=== PATIENT | male | born 1945 | race Caucasian/White ===

== ENCOUNTER 2021-04-25 13:39 | Outpatient (CLI) | payer MEDICARE, SELFPAY ==
--- NOTE | ~2021-04-25 | MR_ITS ---
EXAMINATION: MR brain/brain stem wo/w con EXAM DATE: 04/25/2021 15:07 INDICATION: new onset expressive aphasia for 2-3 weeks. TECHNIQUE: Magnetic resonance imaging (MRI) of the brain/brain stem obtained without contrast. Sagit tonny T1, axial diffusion, gradient echo (T2*), T1, T2, FLAIR sequences obtained. Patient was then inj ected with 20 cc intravenous Multihance contrast. Axial and coronal postcontrast T1 weighted sequence s obtained. There is no prior study for comparison. FINDINGS: There is region of increased T1 and T2 signal involving left frontal lobe posterior turcios an d white matter, measuring up to about 3 cm. This region also demonstrates enhancement, small amount o f cortical strip susceptibility and possible mild restricted diffusion. Appearance is most consistent with a subacute infarction and laminar necrosis, although enhancing primary brain cancer can have si milar appearance; therefore a follow-up examination is recommended in one month to confirm expected e volution. There is a chronic left parietal lobe infarction which is similar in size. No other areas of abnormal enhancement. Punctate old right cerebellar infarction. No obstructive hydr ocephalus or extra-axial collections. Rising cataract surgery. Mild to moderate mucoperiosteal thicke naun. Left mastoid effusion. Flow voids are seen in the cerebral arteries on the T2 weighted sequence s consistent with their expected patency. IMPRESSION: 1. Left posterior frontal lobe signal abnormality most consistent with subacute infarction, laminar necrosis; recommend one-month follow-up MRI without and with contrast to confirm expected evolution a nd exclude glioblastoma. 2. Old left parietal lobe infarction. Reviewed, dictated and finalized at location B. OGRAPHIC PROOFER APPRENTICE IMPRESSION: 1. Left posterior frontal lobe signal abnormality most consistent with subacut e infarction, laminar necrosis; recommend one-month follow-up MRI without and w ith contrast to confirm expected evolution and exclude glioblastoma. 2. Old left parietal lobe infarction.
--- NOTE | ~2021-04-25 | US_ITS ---
EXAMINATION: US carotid duplex BI DATE: 04/25/2021 15:33 INDICATION: Aphasia TECHNIQUE: Grayscale, color Doppler, and pulsed Doppler images of the cervical carotid arteries were obtained. The degree of vessel stenosis is placed in one of the following categories: normal, <50%, 5 0-69%, >=70% but less than near-occlusion, near-occlusion, or total occlusion. Note that percent sten osis relative to normal distal artery lumen diameter is indirectly measured from velocity measurement s as described by Jamal, et al. Radiology 2003; 229:340-346. COMPARISON: None. FINDINGS: RIGHT: The right common carotid artery (CCA) peak systolic velocity (PSV) is 58 cm/s. The right internal car otid artery (ICA) PSV is 61 cm/s. The right ICA end-diastolic velocity (EDV) is 14 cm/s. The right IC A/CCA PSV ratio is 1.1. Grayscale and color Doppler images yield an estimate of <50% diameter reducti on from plaque in the ICA. The external carotid artery (ECA) PSV is 103 cm/s. There is antegrade flow in the right vertebral artery. LEFT: The left CCA PSV is 88 cm/s. The left ICA PSV is 59 cm/s. The left ICA EDV is 10 cm/s. The left ICA/C CA PSV ratio is 0.7. Grayscale and color Doppler images yield an estimate of <50% diameter reduction from plaque in the ICA. The ECA PSV is 100 cm/s. There is antegrade flow in the left vertebral artery . IMPRESSION: 1. <50% stenosis in the right internal carotid artery. 2. <50% stenosis in the left internal carotid artery. Reviewed, dictated and finalized at location A. ORK SECURITY ADMINISTRATOR
[2021-04-25 14:32] LABS: Estimated Glomerular Filt Rate > 60
== END 2021-04-25 13:40 | disposition home or self-care (01) ==
PROVIDERS: PCP Internal Medicine; Visit Provider Nurse Practitioner
DX: R74.01 Elevation of levels of liver transaminase levels (principal); Z86.73 Personal history of transient ischemic attack (TIA), and cerebral infarction without residual deficits; I65.23 Occlusion and stenosis of bilateral carotid arteries
CPT/HCPCS: 70553; 93880; A9577

== ENCOUNTER 2021-07-29 13:40 | Outpatient (CLI) | payer MEDICARE, SELFPAY ==
--- NOTE | 2021-07-29 13:45 | ECHO_ITS ---
Patient Info Name: Mak Lebron Age: 75 years : 1945 Gender: Male Ht: 69 in Wt: 218 lbs BSA: 2.23 m2 HR: 92 bpm BP: 157 / 85 mmHg Technical Quality: Fair Exam Date: 07/29/2021 2:12 PM Exam Location: [facility] Patient Status: Outpatient Admit Date: 07/29/2021 Staff Ordering Physician: Arden Bustamante MD Linux Consultant: María Humphrey RDCS Attending Provider: Arden Bustamante MD Exam Type: CA echo doppler w bubble study Study Info Indications I63.9 - CEREBRAL INFARCTION, UNSPECIFIED Complete two-dimensional, color flow and Doppler transthoracic echocardiogram is performed with agitated saline. Contrast/Agitated Saline Contrast/Ag. Saline: Agitated Saline Amount: 20.00 ml Administered By: Tali Jensen RDCS New IV Access: Inner Forearm and Left Site Condition: No extravasation and IV removed Summary 1. Left ventricular chamber dimension is normal. 2. Left ventricular systolic function is normal, estimated at 60-65%. 3. There is mildly increased left ventricular wall thickness. 4. The left ventricular diastolic function is grade I diastolic dysfunction. 5. E/e' 14 is mildly elevated. 6. There is trace mitral valve regurgitation. 7. There is trace tricuspid valve regurgitation. 8. No pulmonary hypertension, estimated pulmonary arterial systolic pressure is 27 mmHg. Left Ventricle E/e' 14 is mildly elevated. Left ventricular chamber dimension is normal. Left ventricular systolic function is normal, estimated at 60-65%. There is mildly increased left ventricular wall thickness. The left ventricular diastolic function is grade I diastolic dysfunction. Right Ventricle Moderator band noted is a normal variant. Right ventricular chamber dimension is normal. Right ventricular systolic function is normal. Left Atria Left atrial chamber dimension is normal. Right Atria Right atrial chamber dimension is normal. Atrial Septum Agitated saline injection with and without valsalva maneuver opacified right side cardiac chambers without obvious shunt to left side cardiac chambers. Intact interatrial septum visualized by 2D and agitated saline imaging. Aortic Valve The aortic valve is trileaflet. There is no aortic valve stenosis. There is no aortic valve regurgitation. Pulmonic Valve There is no pulmonic regurgitation. Mitral Valve There is no mitral valve stenosis. There is trace mitral valve regurgitation. Tricuspid Valve There is trace tricuspid valve regurgitation. No pulmonary hypertension, estimated pulmonary arterial systolic pressure is 27 mmHg. Pericardium/Pleural There is no pericardial effusion. Inferior Vena Cava Normal inferior vena cava with >50% collapse upon inspiration consistent with normal right atrial pressure, 5 mmHg. Aorta The aortic root size at the sinus of Valsalva is normal. Left Ventricular Outflow Tract Name Value Normal LVOT 2D LVOT Diameter 2.0 cm LVOT Doppler LVOT Peak Gradient 5 mmHg LVOT Mean Gradient 3 mmHg LVOT VTI
== END 2021-07-29 13:41 | disposition home or self-care (01) ==
PROVIDERS: PCP Internal Medicine; Visit Provider Psychiatry & Neurology Neurology
DX: I63.9 Cerebral infarction, unspecified (principal)
CPT/HCPCS: 93306; 96375

== ENCOUNTER 2022-01-27 00:23 | Day surgery (SDC) | payer MEDICARE, SELFPAY ==
[2022-01-14 15:00] VITALS: BMI 34.5
[2022-01-27 07:45] VITALS: BP 146/97; PULSE 103; RESP 103; TEMP 36.6; O2SAT 95; BMI 34.4
--- NOTE | 2022-01-27 07:56 | PM.HPGS ---
History of Present Illness History of Present Illness Consent: Risks, benefits, and alternatives have been discussed and questions answered. Patient agrees to proceed with procedure. Chief complaint: positive cologuard, Howard's Esophagus Narrative: Mak Lebron is a 76 year old male Presents for screening colonoscopy. Patient recently found to have positive Cologuard test. Patient has a family history of colon cancer in his brother. Patient is reported to have had an adenomatous colon polyp removed in 2011. Patient has been followed by Dr. Fisher with an underlying history of Howard's esophagus. Patient denies heartburn. Currently has no dysphagia or difficulty swallowing. He is reported to have had a CVA in April of 2021 this left him with some dysarthria. Previous PPI therapy apparently has been discontinued for concerns over interaction with new drug medication. Patient denies any dysphagia. Patient presents today for both colonoscopy and EGD. Review of Systems Review of Systems: Review of systems is noncontributory. [facility] Past Medical History Medical History ARIK (obstructive sleep apnea) Family History Family History Mother Hypertension Family history of malignant neoplasm of breast in first degree relative Sibling Family history of arthritis Carcinoma of colon Father Family history of diabetes mellitus in first degree relative Family history of congestive heart failure Social History Social History Smoking status: Never smoker Second hand tobacco smoke exposure: No Alcohol intake: never Substance use: never Substance use type: does not use Living arrangements: with family Spiritual care concerns: No Meds Home Medications and Allergies Home Medications Medication Instructions Recorded Confirmed Type inulin 2 gram chewable tablet See Rx Instructions PO .COMPLEX 02/18/19 01/27/22 History (Fiber Gummies) amlodipine 5 mg tablet 5 mg PO DAILY #90 tabs 09/11/21 01/27/22 Rx atorvastatin 10 mg tablet 10 mg PO DAILY #90 tabs 09/11/21 01/27/22 Rx glimepiride 2 mg tablet 2 mg PO DAILY #180 tabs 09/11/21 01/27/22 Rx pioglitazone 15 mg-metformin 850 1 tablet PO DAILY #90 tabs 09/11/21 01/27/22 Rx mg tablet losartan 100 mg tablet 100 mg PO DAILY #90 tabs 12/15/21 01/27/22 Rx Allergies Allergy/AdvReac Type Severity Reaction Status Date / Time No Known Allergies Allergy Mild Verified 01/27/22 07:50 Exam Narrative: Physical exam reveals patient to be alert. Vital signs stable. HEENT exam reveals no icterus. Lungs are clear. Heart without murmur. Abdomen bowel sounds are present soft nontender with no organomegaly. Digital external rectal exam is normal. Assessment and Plan Assessment and plan (1) Positive colorectal cancer screening using Cologuard test: Code(s): R19.5 - Other fecal abnormalities Status: Acute Assessment and Plan: Patient presents today for colonoscopy because of positive Cologuard test. (2) History of colon polyps: Code(s): Z86.010 - Personal history of colonic polyps Status: Acute Assessment and Plan: Patient has prior history of colon polyps. Apparently adenomatous colon polyps removed in 2011. (3) Family hx of colon cancer: Code(s): Z80.0 - Family history of malignant neoplasm of digestive organs Status: Acute Assessment and Plan: Patient's brother has had colon cancer. Suggesting patient has a higher risk of colon polyps. Follow-up colonoscopy at 5 year intervals has been advised. (4) Expressive aphasia: Code(s): R47.01 - Aphasia Status: Acute Assessment and Plan: Patient with expressive aphasia after CVA in April of 2021. (5) CVA (cerebrovascular accident): Code(s):
[2022-01-27] MEDS: LACTATED RINGERS 1,000 ML 150 ML IV CONT (08:16)
--- NOTE | 2022-01-27 08:18 | P.PNAN_ITS ---
Anes - Initial Pre Proc Eval Procedure: Operation Date: 01/27/22 09:00 Proposed Procedures p Esophagogastroduodenoscopy & Colonoscopy - Jose Manuel Galeana MD Date/Time: 01/27/22 08:18 Surgeon: Jose Manuel Galeana MD Pre Op Diagnosis: positive cologuard, Howard's Esophagus Patient Data Age: 76 Gender: M Height: 1.73 m Weight: 102.8 kg Last Vital Signs Temp 36.6 C 01/27/22 07:45 Pulse 103 H 01/27/22 07:45 Resp 103 H 01/27/22 07:45 BP 146/97 H 01/27/22 07:45 Pulse Ox 95 01/27/22 07:45 O2 Del Method Room Air 01/27/22 07:45 Allergies Allergy/AdvReac Type Severity Reaction Status Date / Time No Known Allergies Allergy Mild Verified 01/27/22 07:50 Home Medications Medication Instructions Recorded Confirmed Type inulin 2 gram chewable tablet See Rx Instructions PO .COMPLEX 02/18/19 01/27/22 History (Fiber Gummies) amlodipine 5 mg tablet 5 mg PO DAILY #90 tabs 09/11/21 01/27/22 Rx atorvastatin 10 mg tablet 10 mg PO DAILY #90 tabs 09/11/21 01/27/22 Rx glimepiride 2 mg tablet 2 mg PO DAILY #180 tabs 09/11/21 01/27/22 Rx pioglitazone 15 mg-metformin 850 1 tablet PO DAILY #90 tabs 09/11/21 01/27/22 Rx mg tablet losartan 100 mg tablet 100 mg PO DAILY #90 tabs 12/15/21 01/27/22 Rx Patient hx anesthesia problems: none Family hx anesthesia problems: none Results Review: All pre-operative results and documents have been reviewed as part of the pre- operative evaluation. [facility] [place] Past Medical History Medical History ARIK (obstructive sleep apnea) Family History Family History Mother Hypertension Family history of malignant neoplasm of breast in first degree relative Sibling Family history of arthritis Carcinoma of colon Father Family history of diabetes mellitus in first degree relative Family history of congestive heart failure Social History Social History Smoking status: Never smoker Second hand tobacco smoke exposure: No Alcohol intake: never Substance use: never Substance use type: does not use Living arrangements: with family Spiritual care concerns: No Anes - Eval Final PreProcedure Day of Procedure 01/27/22 08:18 Patient weight: obese Heart: regular rate and rhythm Lungs: clear to auscultation Airway: Mallampati scale class II Neurological: alert and oriented Last oral intake: >/= 8 hours ASA classification: IV Emergent: no Anesthetic plan: proceed Anesthesia type and monitoring: general GIVS and standard monitoring Results Review: All pre-operative results and documents have been reviewed as part of the pre- operative evaluation. Informed Consent: The patient's anesthetic plan and its attendant risks and benefits were discussed with the patient/family/POA. Questions were solicited and answers provided to the satisfaction of the patient/family/POA.
[2022-01-27 08:27] LABS: Glucose Point of Care 129 mg/dl (65-105)
--- NOTE | 2022-01-27 09:13 | SUR.OPER ---
EGD ENDED 906, COLONOSCOPY STARTED 912
[2022-01-27 09:19] VITALS: BP 90/52; PULSE 77; RESP 16; O2SAT 99
[2022-01-27 09:29] VITALS: BP 118/82; PULSE 85; RESP 18; O2SAT 97
[2022-01-27 09:39] VITALS: BP 118/85; PULSE 74; RESP 23; O2SAT 98
== END 2022-01-27 09:42 | disposition home or self-care (01) ==
PROVIDERS: PCP Internal Medicine; Visit Provider Internal Medicine Gastroenterology
PROC: 0DJ08ZZ Inspection of Upper Intestinal Tract, Via Natural or Artificial Opening Endoscopic (ICD-10-PCS; CPT 43235; principal; 2022-01-27 09:00)
DX: R19.5 Other fecal abnormalities (principal); Z86.010 Personal history of colon polyps; Z80.0 Family history of malignant neoplasm of digestive organs; K21.00 Gastro-esophageal reflux disease with esophagitis, without bleeding; K22.10 Ulcer of esophagus without bleeding; G47.33 Obstructive sleep apnea (adult) (pediatric); I69.320 Aphasia following cerebral infarction; Z79.84 Long term (current) use of oral hypoglycemic drugs; E66.9 Obesity, unspecified; Z68.34 Body mass index [BMI] 34.0-34.9, adult
CPT/HCPCS: 45378; 43239; 82948; 88305; J2001; J2704; J7120

== ENCOUNTER 2023-04-02 04:13 | Day surgery (SDC) | payer MEDICARE, SELFPAY ==
[2023-03-23 13:42] VITALS: BMI 31.6
--- NOTE | 2023-03-31 10:04 | SUR.PREOP ---
Patient called regarding upcoming procedure. Message left on pt's voicemail regarding appointment times.
--- NOTE | 2023-04-02 10:28 | ECG_ITS ---
Measurements Intervals [place] Rate: 103 P: RI: 0 QRS: -21 QRSD: 108 T: 4 QT: 356 QTc: 468 Interpretive Statements ATRIAL FIBRILLATION WITH RAPID VENTRICULAR RESPONSE ABNORMAL RHYTHM ECG NO PREVIOUS ECG AVAILABLE FOR COMPARISON Electronically Signed On 04-02-2023 16:36:38 CREDIT RESOLUTION REPRESENTATIVE by Eun Smith M.D.
--- NOTE | 2023-04-02 10:31 | SUR.PREOP ---
Patient heart rate irregular upon auscultation and palpation. Patient connected to heart monitor and Dr. Jeter assessed. Received orders from Dr. Jeter for a STAT EKG.
[2023-04-02 10:54] VITALS: BP 155/82; PULSE 110; RESP 20; TEMP 36.4; O2SAT 97
--- NOTE | 2023-04-02 10:57 | SUR.PREOP ---
Patient's EKG showed Atrial Fibrillation with RVR. Dr. Jeter assessed and recommended the patient go to the ER. Patient agreeable. Report given by JOE Ambrosio. Patient transferred to the ER via stretcher. at bedside with patient.
== END 2023-04-02 11:01 | disposition other institution (70) ==
PROVIDERS: PCP Nurse Practitioner; Visit Provider Internal Medicine Gastroenterology
PROC: 0DJ08ZZ Inspection of Upper Intestinal Tract, Via Natural or Artificial Opening Endoscopic (ICD-10-PCS; CPT 43235; principal; 2023-04-02 11:30)
DX: I48.91 Unspecified atrial fibrillation (principal); Z53.09 Procedure and treatment not carried out because of other contraindication
CPT/HCPCS: 93005; 99212; G0463

== ENCOUNTER 2023-04-02 10:58 | Emergency (ER) | payer MEDICARE, SELFPAY ==
--- NOTE | ~2023-04-02 | XR_ITS ---
EXAMINATION: XR chest 1V portable DATE: 04/02/2023 11:28 INDICATION: Arrhythmia. TECHNIQUE: A single frontal view of the chest was obtained. COMPARISON: Chest 2 views 04/22/2009, chest CT 01/06/2010 FINDINGS: There is chronic marked elevation of right hemidiaphragm. There are interstitial opacities in the mid and lower lung zones. No pleural effusion or pneumothorax or cardiomegaly is noted. IMPRESSION: 1. Interstitial opacities in the mid and lower lung zones, consistent with mild pulmonary edema versu s chronic interstitial lung disease. 2. Chronic marked elevation of right hemidiaphragm. 3. Cardiomegaly. Reviewed, dictated and finalized at location A. R CREASER IMPRESSION: 1. Interstitial opacities in the mid and lower lung zones, consistent with mild pulmonary edema versus chronic interstitial lung disease. 2. Chronic marked elevation of right hemidiaphragm. 3. Cardiomegaly.
[2023-04-02 10:59] VITALS: BP 146/87; PULSE 122; RESP 21; O2SAT 93
--- NOTE | 2023-04-02 11:04 | ECG_ITS ---
Measurements Intervals [place] Rate: 103 P: OR: 0 QRS: 118 QRSD: 97 T: 5 QT: 368 QTc: 482 Interpretive Statements ATRIAL FIBRILLATION WITH RAPID VENTRICULAR RESPONSE LOW QRS VOLTAGE IN PRECORDIAL LEADS [QRS DEFLECTION < 1.0 mV IN CHEST LEADS] COMPARED TO ECG 04/02/2023 10:35:38 NO SIGNIFICANT CHANGES Electronically Signed On 04-02-2023 16:37:46 TUBE ROLLER by Eun Smith M.D.
--- NOTE | 2023-04-02 11:24 | ED.ARRPALP ---
HPI - Arrhythmia/Palpitations General Chief Complaint: Arrhythmia/Palpitations <Jessica Huang PA-C - Last Filed: 04/02/23 20:25> Stated Complaint: afib <Jessica Huang PA-C - Last Filed: 04/02/23 20:25> Time Seen by Provider: 04/02/23 11:06 <Jessica Huang PA-C - Last Filed: 04/02/23 20:25> History of Present Illness HPI narrative: 77-year-old male with a history of hypertension, hyperlipidemia, diabetes, CVA, hypothyroidism reports for evaluation for new onset atrial fibrillation with his at bedside. Patient was sent to the ED from the GI lab. He was scheduled for a routine EGD and colonoscopy today when he had a preop EKG performed which showed atrial fibrillation. The patient states he feels fine. He denies chest pain, palpitations, shortness of breath, syncope, lightheadedness, neck pain or back pain, abdominal pain, fever, cough or congestion. He denies history of atrial fibrillation. He is not anticoagulated but does take 81 mg of aspirin daily for prior CVA. Denies vision changes, focal numbness or weakness, melena, hematochezia, hematemesis. <ANN MARIE Nance Last Filed: 04/02/23 20:25> Related Data Home Medications: Home Medications Medication Instructions Recorded Confirmed inulin 2 gram chewable tablet See Rx Instructions PO .COMPLEX 02/18/19 03/23/23 (Fiber Gummies) <ANN MARIE Nance Last Filed: 04/02/23 20:25> Allergies/Adverse Reactions: Allergies Allergy/AdvReac Type Severity Reaction Status Date / Time No Known Allergies Allergy Mild Verified 04/02/23 10:33 <ANN MARIE Nance Last Filed: 04/02/23 20:25> Thyroid Dysfunction Results: TSH 1.45 mIU/L (0.40-4.50) 07/13/22 <ANN MARIE Nance Last Filed: 04/02/23 20:25> Most Recent Cardiac Tests: Chest X-Ray 04/02/23 Echocardiogram 07/29/21 <Jessica Huang PA-C - Last Filed: 04/02/23 20:25> Labs Most Recent Diabetes Results: Hemoglobin A1c 6.4 % of total Hgb (<5.7) H 01/20/23 Glucose 87 mg/dL (65-110) 04/02/23 Microalb/Creat Ratio 15 mcg/mg creat (<30) 06/26/20 Cholesterol 109 mg/dL (<200) 01/20/23 Triglycerides 132 mg/dL (<150) 01/20/23 Creatinine 1.00 mg/dL (0.7-1.3) 04/02/23 Blood Urea Nitrogen 15 mg/dL (9-20) 04/02/23 Sodium 141 mmol/L (137-145) 04/02/23 Potassium 3.9 mmol/L (3.4-5.0) 04/02/23 Chloride 103 mmol/L (98-107) 04/02/23 Carbon Dioxide 28 mmol/L (22-30) 04/02/23 Calcium 9.3 mg/dL (8.4-10.2) 04/02/23 AST 24 U/L (17-59) 04/02/23 ALT 12 U/L (6-50) 04/02/23 Total Protein 8.0 g/dL (6.3-8.2) 04/02/23 Albumin 4.1 g/dL (3.5-5.1) 04/02/23 <Jessica Huang PA-C - Last Filed: 04/02/23 20:25> Management Diabetes Management: Date of last retinal or dilated eye exam Date of last comprehensive foot exam Visual inspection previously performed No 02/28/19 Peripheral pulses previously performed No 02/28/19 Sensory foot exam previously performed No 02/28/19 Date of last diabetes education Date of last dental visit <Jessica Huang PA-C - Last Filed: 04/02/23 20:25> Review of Systems Review of Systems: CONSTITUTIONAL: Denies fever, chills, or sweats. EYES: Denies visual changes, redness, or discharge. ENT: Denies rhinorrhea, congestion, sore throat, or otalgia. CARDIOVASCULAR: Denies chest pain, palpitations, or edema. RESPIRATORY: Denies cough or dyspnea. GASTROINTESTINAL: Denies abdominal pain, nausea, vomiting, or diarrhea. GENITOURINARY: Denies dysuria or hematuria. SKIN: Denies rash or itching. MUSCULOSKELETAL: Denies back pain, joint pain, or myalgia. NEUROLOGIC: Denies headache, numbness, or weakness. PSYCHIATRIC: Denies anxiety or depression. <Jessica Huang PA-C - Last Filed: 04/02/23 20:25> [facility] Past Medical History
[2023-04-02 11:27] LABS: Basophils Percent Auto 0.2 % (0.2-1.2); Eosinophils Percent Auto 0.4 % (0-4.4); Hematocrit 48.3 % (42.0-52.0); Hemoglobin 15.5 g/dL (14.0-18.0); Immature Granulocyte Absolute 0.04 K/mm3 (0.00-0.031); Immature Granulocyte Percent A 0.4 % (0-0.5); Lymphocytes Absolute Auto 1.61 K/mm3 (0.9-3.2); Mean Corpuscular HGB Conc 32.1 g/dl (32-36); Mean Corpuscular Hemoglobin 28.1 pg (26-34); Mean Corpuscular Volume 87.7 fl (80-100); Mean Platelet Volume 9.9 fl (7.4-10.4); Monocytes Absolute Auto 0.9 K/mm3 (0.1-0.6); Monocytes Percent Auto 9.8 % (2.6-8.5); Neutrophils Absolute Auto 6.4 K/mm3 (1.3-6.7); Neutrophils Percent Auto 71.2 % (45.5-73.1); Platelet Count Result 195 k/mm3 (150-375); Red Blood Count 5.51 M/mm3 (4.6-6.20); Red Cell Distribution Width 15.2 % (11.5-14.5)
[2023-04-02 11:37] LABS: Alanine Aminotransferase 12 U/L (6-50); Albumin Level 4.1 g/dL (3.5-5.1); Alkaline Phosphatase 96 U/L (38-126); Anion Gap 10 mmol/L (8-16); Aspartate Amino Transferase 24 U/L (17-59); Bilirubin,Total 1.6 mg/dL (0.2-1.3); Blood Urea Nitrogen 15 mg/dL (9-20); Calcium 9.3 mg/dL (8.4-10.2); Carbon Dioxide 28 mmol/L (22-30); Chloride 103 mmol/L (98-107); Estimated CRCL calculation 70 ml/min; Estimated Glomerular Filt Rate > 60; Glucose 87 mg/dL (65-110); Lipase 32 U/L (23-300); Potassium 3.9 mmol/L (3.4-5.0); Sodium 141 mmol/L (137-145)
[2023-04-02 11:39] LABS: Magnesium 1.8 mg/dL (1.6-2.3)
[2023-04-02 11:41] LABS: INR 1.1; Partial Thromboplastin Time 29.6 SECONDS (22.3-36.8); Prothrombin Time 14.4 Seconds (11.1-14.7)
[2023-04-02 11:49] LABS: NT Pro B Type Natriuretic Pept 239 pg/mL (19.9-100); Troponin I < 0.012 ng/mL (0.000-0.034)
[2023-04-02] MEDS: SODIUM CHLORIDE 0.9% IV 1,000 ML 999 ML IV CONT (11:57)
[2023-04-02] MEDS: ENOXAPARIN 120 MG/0.8 ML SYRINGE 105 MG SUB-Q (11:57)
--- NOTE | 2023-04-02 13:00 | ECG_ITS ---
Measurements Intervals [place] Rate: 95 P: [place]: 0 QRS: 159 QRSD: 97 T: -8 QT: 363 QTc: 457 Interpretive Statements ATRIAL FIBRILLATION LOW QRS VOLTAGE IN PRECORDIAL LEADS [QRS DEFLECTION < 1.0 mV IN CHEST LEADS] COMPARED TO ECG 04/02/2023 11:11:39 NO SIGNIFICANT CHANGES Electronically Signed On 04-02-2023 16:40:31 MANAGER ASSET MANAGEMENT by Eun Smith M.D.
[2023-04-02 13:16] VITALS: BP 134/81; PULSE 93; RESP 18; O2SAT 94
[2023-04-02 13:50] VITALS: PULSE 98
[2023-04-02] MEDS: RIVAROXABAN 20 MG TABLET PO (13:50)
[2023-04-02] MEDS: METOPROLOL SUCCINATE EXT REL 25 MG TABCR PO (13:50)
== END 2023-04-02 13:51 | disposition home or self-care (01) ==
PROVIDERS: Emergency Medicine; Emergency Provider Physician Assistant; PCP Nurse Practitioner
DX: I48.91 Unspecified atrial fibrillation (principal); I10 Essential (primary) hypertension; E78.5 Hyperlipidemia, unspecified; E11.9 Type 2 diabetes mellitus without complications; E03.9 Hypothyroidism, unspecified; E78.2 Mixed hyperlipidemia; G47.33 Obstructive sleep apnea (adult) (pediatric); K21.9 Gastro-esophageal reflux disease without esophagitis; Z86.73 Personal history of transient ischemic attack (TIA), and cerebral infarction without residual deficits; Z79.82 Long term (current) use of aspirin
CPT/HCPCS: 36415; 71045; 80053; 83690; 83735; 83880; 84443; 84484; 85025; 85610; 85730; 93005; 96360; 96372; 99284; A9270; J1650; J7030

== ENCOUNTER 2024-07-05 12:40 | Outpatient (CLI) | payer MEDICARE, SELFPAY ==
--- NOTE | ~2024-07-05 | PE_ITS ---
EXAMINATION: PET_PETPSMAST_PT DATE: 07/05/2024 15:20 INDICATION: Prostate cancer TECHNIQUE: 5.34 mCi of Illucix Ga-68([id number]) was administered i.v. Low dose computed tomog daria (CT) images were acquired from the base of the brain to the base of the brain to the proximal t highs for attenuation correction and anatomic localization. Positron emission tomography (PET) images were acquired in the same distribution beginning 94 minutes after injection. Images including fused PET/CT images were reconstructed in axial, coronal, and sagittal planes. Automated exposure control t echnique was employed. The dose-length product was 1277.61mGy-cm. COMPARISON: None FINDINGS: Head/neck: Typical pattern of symmetric physiologic increased activity in the lacrimal, parotid, sublingual and submandibular glands. No pathologically enlarged cervical lymphadenopathy or suspicious foci of incre ased uptake in the visualized head or neck. Chest: Elevation the right hemidiaphragm with right basilar atelectasis. Additional discoid atelectasis in t he right upper lobe. No suspicious pulmonary nodules, pneumonia, pulmonary edema or pleural effusion. Heart size is normal. Atherosclerotic coronary artery calcifications. Thoracic aorta is normal in ca liber. Calcified mediastinal lymph nodes consistent with old granulomatous disease. No pathologically enlarged or PSMA avid thoracic lymphadenopathy. Moderate bilateral gynecomastia. Small sliding-type hiatal hernia. Abdomen/pelvis/proximal thighs: Physiologic renal accumulation and excretion of activity in the kidneys, bladder and along portions o f ureters. Prostatomegaly measuring 5.3 x 4.0 cm with approximately 3 cm region of prominent increase d activity with maximal SUV of 64.6 at the right side of the prostate representing the site of primar y prostate cancer. There is a small focus of mild uptake with maximal SUV of 11.6 at the left seminal vesicle suggesting local extraprostatic extension. Normal degree and slightly heterogenous pattern o f increased uptake throughout the liver and spleen without radiologic correlate or dominant PSMA avid lesion. The gallbladder and bilateral adrenal glands are normal. Moderate fatty atrophy of the pancr eas. Moderate uptake scattered throughout the bowels with typical duodenal and proximal jejunal predo minance and without radiologic correlate, also likely physiologic. Normal appendix. No other abnormal foci of increased uptake or pathologically enlarged lymphadenopathy in the abdomen, pelvis or proxim al thighs. Small fat-containing left inguinal hernia. Musculoskeletal: Moderate cervical and thoracic and mild lumbar spondylosis. No suspicious lytic, blastic or abnormall y PSA may avid bone lesions. IMPRESSION: 1. Region of prominent increased activity at the right-sided the prostate and small region of mild up take at the left seminal vesicle consistent with primary prostate cancer and local extraprostatic ext ension. No more remote metastatic disease. Reviewed, dictated and finalized at location A. IMPRESSION: 1. Region of prominent increased activity at the right-sided the prostate and s mall region of mild uptake at the left seminal vesicle consistent with primary prostate cancer and local extraprostatic extension. No more remote metastatic d isease.
--- OUTSIDE RECORDS SUMMARY | 2024-07-05 13:46 | XMS_ITS | Referral Summary ---
Author Organization [facility] [place] [address] Address [address] [place] [address] Care Team Providers Care Cooker Sulfite Name Role Phone Pilar Flores NP Primary Care Provider [phone] Allergies No known active allergies Medications amLODIPine (NORVASC) 5 mg tablet Take 1 tablet (5 mg total) by mouth daily 4 Active atorvastatin (LIPITOR) 10 mg tablet Take 1 tablet (10 mg total) by mouth daily 4 Active glimepiride (AMARYL) 2 mg tablet Take 1 tablet (2 mg total) by mouth daily before breakfast 4 Active losartan (COZAAR) 100 mg tablet Take 1 tablet (100 mg total) by mouth daily 4 Active pioglitazone-me tformin (ACTOPLUS MET) 15-850 mg per tablet Take 1 tablet by mouth daily 4 Active metoprolol XL (TOPROL-XL) 25 mg extended release tablet Take 1 tablet (25 mg total) by mouth daily 4 Active Xarelto 20 mg tablet Take 1 tablet (20 mg total) by mouth daily [address] (PROTONIX) 40 mg EC tablet Take 1 tablet (40 mg total) by mouth daily Active Active Problems Problem Noted Date Diagnosed Date Atrial fibrillation 11/24/2023 Social History Tobacco Use Types Packs/Day Years Used Date Smoking Tobacco: Never Smokeless Tobacco: Never Tobacco Cessation:Counseling Given: Not Answered Personal Safety Answer Date Recorded Getting School Help Needed Not on file 08/04 Sex and Gender Information Value Date Recorded Sex Assigned at Not on file Legal Sex Male 1:26 PM CDT Gender Identity Not on file Sexual Orientation Not on file Last Filed Vital Signs Vital Sign Reading Time Taken Comments Blood Pressure 142/86 01/31/2024 9:49 AM CDT Pulse 101 01/31/2024 9:49 AM CDT Temperature - - Respiratory Rate 18 11/24/2023 10:02 AM CDT Oxygen Saturation 96% 01/31/2024 9:49 AM CDT Inhaled Oxygen Concentration - - Weight 111.1 kg (245 lb) 01/31/2024 9:49 AM CDT Height 180.3 cm (5' 11 ) 01/31/2024 9:49 AM CDT Body Mass Index 34.17 01/31/2024 9:49 AM CDT Plan of Treatment Not on file Insurance T MEDICARE Care Teams Cooker Sulfite Relationship Specialty Start Date End Date Pilar Flores NP [address] [place] [address] PCP - General Family Medicine 11/24/23
--- OUTSIDE RECORDS SUMMARY | 2024-07-05 13:46 | XMS_ITS | Continuity of Care Document ---
Author Organization [facility] Address [address]le [address] [place] [phone] Phone Care Team Providers Care Machine Loader Name Role Phone Cristobal Graham Unavailable Unavailable Procedures Procedure Date Eye Exam & Treatment Dilated Retinal Exam W Interpretation Oc Dilated Macular Or Fundus Exam Findings Communicat Macular Or Fundus Exam Performed 2009 Communication Performed Ophthalmoscopy, Subsequent Ophthalmoscopy, Subsequent Optic Nerve Topography Optic Nerve Topography Eye Exam & Treatment Macular Or Fundus Exam Performed 2009 Dilated Macular Or Fundus Exam Findings Communicat Macular Or Fundus Exam Performed 2009 Communication Performed Ophthalmoscopy, Subsequent Ophthalmoscopy, Subsequent Optic Nerve Topography Optic Nerve Topography Eye Exam & Treatment Dilated Retinal Exam W Interpretation Ju Dilated Macular Or Fundus Exam Findings Communicat Macular Or Fundus Exam Performed 2009 Communication Performed Ophthalmoscopy, Subsequent Ophthalmoscopy, Subsequent Optic Nerve Topography Optic Nerve Topography Eye Exam & Treatment Eye Exam & Treatment Dilated Retinal Exam W Interpretation Ja Dilated Macular Or Fundus Exam Findings Communicat Macular Or Fundus Exam Performed 2009 Communication Performed Ophthalmoscopy, Subsequent Ophthalmoscopy, Subsequent Post-op Follow-up Visit After Cataract Laser Surgery Office/outpatient Visit, Est Eye Exam & Treatment Ophthalmoscopy, Subsequent Ophthalmoscopy, Subsequent Optic Nerve Topography Optic Nerve Topography Dilated Retinal Exam W Interpretation De Dilated Macular Or Fundus Exam Findings Communicat Macular Or Fundus Exam Performed 2008 Communication Performed Eye Exam & Treatment Dilated Retinal Exam W Interpretation De Dilated Macular Or Fundus Exam Findings Communicat Macular Or Fundus Exam Performed 2008 Communication Performed Ophthalmoscopy, Subsequent Ophthalmoscopy, Subsequent Optic Nerve Topography Injection Eye Drug Kenalog/Triamcinolone Acetonide Inj Eye Exam Established Pt Ophthalmoscopy, Subsequent Ophthalmoscopy, Subsequent Optic Nerve Topography Eye Exam Established Pt Ophthalmoscopy, Subsequent Eye Exam & Treatment Ophthalmoscopy, Subsequent Ophthalmoscopy, Subsequent Optic Nerve Topography Optic Nerve Topography Injection Eye Drug Kenalog/Triamcinolone Acetonide Inj Eye Exam & Treatment Ophthalmoscopy, Subsequent Ophthalmoscopy, Subsequent Optic Nerve Topography Optic Nerve Topography Eye Exam Established Pt Ophthalmoscopy, Subsequent Ophthalmoscopy, Subsequent Eye Exam Established Pt Ophthalmoscopy, Subsequent Ophthalmoscopy, Subsequent Eye Exam Established Pt Ophthalmoscopy, Subsequent Ophthalmoscopy, Subsequent Treatment Of Retinal Lesion Treatment Of Retinal Lesion Ophthalmoscopy, Subsequent Injection Eye Drug Kenalog/Triamcinolone Acetonide Inj Office Consultation Injection Eye Drug Kenalog/Triamcinolone Acetonide Inj Ophthalmoscopy Ophthalmoscopy Fluorescein Angiography Fluorescein Angiography Fundus Photography W/ Report Post-op Follow-up Visit Post-op Follow-up Visit Remove Cataract, Insert Lens Eye Exam, New Patient Echo Exam Of Eye Advance Directives Directive Yes / No Effective Date File Name No Information Encounters Encounter Description Practice Location Reason(s) For Visit Diagnoses Date Provider Providers Copied on Encounter [facility], [address] [place] [address] [address], [place], [place], [id number], [place] tel:[phone] [facility] No Information 0 Santos Jain. [address] [place], [address], [place]. tel:[phone] Referring Provider: Cristobal Flynn, [address] [place], [address]. tel:[phone] [facility], [address] [place] [address] [address], [place], [place], [id number], [place] tel:[phone] [facility] No Information 0 Santos Jain. [address] [place], [address], [place]. tel:[phone] Referring Provider: Cristobal Flynn, [address] [place], [address]. tel:[phone] [facility], [address] [place] [address] [address], [place], [place], [id number], [place] tel:[phone] [facility] No Information 0 Santos Jain. [address] [place], [address], [place]. tel:[phone] Referring Provider: Cristobal Flynn [address] [place], [address]. tel:[phone] [facility], [address], [place], [place], [address], [place] tel:[phone] [facility] No Information 5-201 0 Santos Jain. [address] [place], [address], [place]. tel:[phone] Referring Provider: Cristobal Flynn, [address] [place], [address]. tel:[phone] [facility], [address], [place], [place], [id number], [place] tel:[phone] [facility] No Information 4-201 0 Santos Jain. [address] [place], [address], [place]. tel:[phone] [facility], [address], [place], [place], [address], [place] tel:[phone] [facility] No Information 7-201 0 Lynne Ballard [address], [place], [address], [place]. tel:[phone] [facility], [address], [place], [place], [address], [place] tel:[phone] [facility] No Information 6-201 0 Lynne Ballard [address], [place], [address], [place]. tel:[phone] Office/outpati ent Visit, [facility], [address], [place], [place], [address], [place] tel:[phone] [facility] No Information 1-200 9 Lynne Ballard [address], [place], [address], [place]. tel:[phone] [facility], [address], [place], [place], [address], [place] tel:[phone] [facility] [place] No Information Dec-1 7-200 9 Santos Jain. [address] [place], [address], [place]. tel:[phone] Referring Provider: Cristobal Flynn, [address] [place], [address]. tel:[phone] [facility], [address], [place], [place], [address], [place] tel:[phone] [facility] No Information Dec-0 3-200 9 Santos Jain. [address] [place], [address], [place]. tel:[phone] Referring Provider: Cristobal Flynn, [address] [place], [address]. tel:[phone] [facility], [address], [place], [place], [address], [place] tel:[phone] [facility] No Information May-2 8-200 9 Santos Jain. [address] [place], [address], [place]. tel:[phone] Referring Provider: Cristobal Flynn, [address] [place], [address]. tel:[phone] [facility], [address], [place], [place], [address], [place] tel:[phone] [facility] No Information Apr-0 6-200 9 Santos Jain. [address] [place], [address], [place]. tel:[phone] Referring Provider: Cristobal Flynn, [address] [place], [address]. tel:[phone] [facility], [address], [place], [place], [address], [place] tel:[phone] [facility] No Information Mar-2 3-200 9 Santos Jain. [address] [place], [address], [place]. tel:[phone] Referring Provider: Cristobal Flynn, [address] [place], [address]. tel:[phone] [facility], [address], [place], [place], [address], [place] tel:[phone] [facility] No Information Dec-2 2-200 8 Santos Jain. [address], [place], [facility], [place]. tel:[phone] Referring Provider: Cristobal Flynn, [address] [place], [address]. tel:[phone] [facility], [address], [place], [place], [address], [place] tel:[phone] [facility] No Information Satinder-1 9-200 8 Santos Jani. [address] [place], [address], [place]. tel:[phone] [facility], [address], [place], [place], [address], [place] tel:[phone] [facility] No Information Apr-0 3-200 8 Santos Jain. [address] [place], [address], [place]. tel:[phone] [facility], [address], [place], [place], [address], [place] tel:[phone] [facility] No Information Feb-1 4-200 8 Santos Jain. [address] [place], [address], [place]. tel:[phone] [facility], [address], [place], [place], [address], [place] tel:[phone] [facility] No Information 3 1-200 8 Santos Jain. [address], [place], [facility], [place]. tel:[phone] Referring Provider: Cristobal Flynn, [address] [place], [address]. tel:[phone] [facility], [address], [place], [place], [address], [place] tel:[phone] [facility] No Information 2 1-200 8 Santos Jain. [address], [place], [facility], [place]. tel:[phone] [facility], [address], [place], [place], [address], [place] tel:[phone] [facility] No Information 1 4-200 8 Santos aJin. [address] [place], [address], [place]. tel:[phone] Office Consultation [facility], [address], [place], [place], [address], [place] tel:[phone] [facility] No Information 0 3-200 8 Santos Jain. [address] [place], [address], [place]. tel:[phone] Referring Provider: Silvia Shaw, [address], [place], [address]. tel:[phone] [facility], [address], [place], [place], [address], [place] tel:[phone] [facility] No Information Mar-2 0-200 7 Lynne Vega. [address], [place], [place], [facility], . tel:[phone] [facility], [address] [place] [address] [address], [place], [place], [address], tel:[phone] [facility] No Information Dec- 3-200 7 Lynne Ocasion. [address] [facility] , [address], [place], [place], [facility], . tel:[phone] [facility], [address] [place] [address] [address], [place], [place], [address], [place] tel:[phone] [facility] No Information Dec-1 2-200 7 Lynne Silvia. [address] [facility] , [address], [place], [place], [facility], . tel:[phone] [facility], [address] [place] [address] [address], [place], [place], [address], tel:[phone] [facility] No Information 9-200 7 Lynne Silvia. [address] [place], [place] [address] , [address], [place], [place], [facility], . tel:[phone] Referring Provider: Silvia Shaw [address] [place], [place] [address], [place], [place], [facility]. tel:[phone] Family History Family Member Type Diagnosis Age At Onset No Information Payers Payer name Insurance type Covered alliance party ID Authoriza tion(s) [place] [id number] [facility] Out Of State [id number] Social History Type Description Quantity Date Captured Comments Sex Male Smoking Status No Information Chief Complaint And Reason For Visit No Information Reason For Referral Reason For Referral No Information History Of Present Illness Encounter Date Complaint History Of Prese nt Illness No Information Functional Status Date Functional Assessmen t No Information Instructions Date Instruction Additional Infor mation No Information Assessments Type Assessment Date No Information Patient Care Teams Name Effective Dates (start - stop) Status Members No Information
--- OUTSIDE RECORDS SUMMARY | 2024-07-05 13:46 | XMS_ITS | Clinical Summary ---
Author Organization [facility] [address] Address [address] [place] [address] Care Team Providers Care Flight Engineer Performance Qualified Name Role Phone Pilar Flores NP Primary Care Provider [phone] Allergies No known active allergies Medications amLODIPine [...] Noted Date Diagnosed Date Atrial fibrillation 11/24/2023 Medical History Medical History Date Comments GERD (gastroesophageal reflux disease) Thyroid disease Hyperlipidemia Sleep apnea Diabetes mellitus (HCC) Family History Medical History Relation Name Comments Diabetes Father Heart failure Father Cancer Mother Hypertension Mother Relation Name Status Comments Father Mother Social History Tobacco Use Types Packs/Day Years Used Date Smoking Tobacco: Never Smokeless Tobacco: Never Tobacco Cessation:Counseling Given: Not Answered Personal Safety Answer Date Recorded Getting School Help Needed Not on file 08/04 Sex and Gender Information Value Date Recorded Sex Assigned at Not on file Legal Sex Male 1:26 PM CDT Gender Identity Not on file Sexual Orientation Not on file Obstetrics History Last Filed Vital Signs Vital Sign Reading [...] 01/31/2024 9:49 AM CDT Plan of Treatment Health Maintenance Due Date Last Done Comments Depression Screening 1945 Fall Risk Assessment 1945 Hepatitis C Screening 1945 DTaP/Tdap/Td Vaccine (1 - Tdap) 10/19/1958 Hepatitis B Screening 10/19/1965 Zoster Vaccine (1 of 2) 10/19/1997 Well Visit 65+ 10/19/2012 Pneumococcal vaccine 65+ (2 of 2 - PPSV23) 04/19/2017 04/19/2016 Influenza Vaccine (#1) 2023 Insurance [facility] MEDIC[facility] Care Teams Flight Engineer Performance Qualified Relationship Specialty Start Date End Date Pilar Flores NP [address] [place] [address] PCP - General Family Medicine 11/24/23
== END 2024-07-05 12:41 | disposition home or self-care (01) ==
PROVIDERS: PCP Nurse Practitioner Family; Visit Provider Urology
DX: C61 Malignant neoplasm of prostate (principal)
CPT/HCPCS: 78815; A9596